=== PATIENT | female | born 1990 ===

== ENCOUNTER 2016-05-23 00:36 | Emergency (ER) | payer OTHER ==
[2016-05-23 00:54] VITALS: TEMP 98.7
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
[2016-05-23 01:09] LABS: BASO % 0.2 % (0.0-2.0); EOS % 0.3 % (0.0-4.0); HEMATOCRIT 39.7 % (34.0-47.0); LYMPH # 1.6 K/uL (1.0-4.3); LYMPH % 22.7 % (20.0-40.0); MEAN CELL VOLUME 85.9 fL (81.0-99.0); MEAN CORPUSCULAR HEMOGLOBIN 28.4 pg (27.0-31.0); MEAN PLATELET VOLUME 10.1 fL (7.2-11.7); MONO # 0.7 K/uL (0.0-0.8); MONO % 9.7 % (0.0-10.0); NRBC % 0.1 % (0.0-2.0); RBC URINE < 1 /hpf (0-3); RED CELL DISTRIBUTION WIDTH 14.1 % (11.5-14.5); URINE BILIRUBIN NEGATIVE (NEGATIVE); URINE BLOOD NEGATIVE (NEGATIVE); URINE COLOR Straw (YELLOW); URINE GLUCOSE (UA) NORMAL (Normal); URINE KETONE NEGATIVE (NEGATIVE); URINE LEUKOCYTE ESTERASE NEG Leu/uL (Negative); URINE PROTEIN NEGATIVE (NEGATIVE); URINE UROBILINOGEN NORMAL mg/dL (0.2-1.0); WBC URINE < 1 /hpf (0-5); WHITE BLOOD COUNT 6.9 K/uL (4.8-10.8)
[2016-05-23 01:14] LABS: CHLORIDE 109 mmol/L (98-107)
[2016-05-23 01:15] LABS: POTASSIUM 3.6 mmol/L (3.6-5.2); SODIUM 148 mmol/L (132-148)
[2016-05-23 01:17] LABS: ALB/GLOB RATIO 1.2 (1.0-2.1); ALKALINE PHOSPHATASE 62 U/L (38-126); AST/SGOT 17 U/L (14-36); BILIRUBIN,TOTAL 0.4 mg/dL (0.2-1.3); CARBON DIOXIDE 20 mmol/L (22-30); GFR AFRICAN-AMERICAN > 60
[2016-05-23 01:18] LABS: ALCOHOL SERUM 255 mg/dl (0-10); ALT/SGPT 21 U/L (9-52); BLOOD UREA NITROGEN 6 mg/dL (7-17); CALCIUM 8.4 mg/dl (8.6-10.4); GLUCOSE,RANDOM 109 mg/dL (65-105)
[2016-05-23 01:48] VITALS: BP 100/66; PULSE 97; RESP 14
[2016-05-23 01:54] VITALS: O2SAT 98
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
== END 2016-05-23 01:51 ==
LOC: C.ER 00:36
DX: Z04.1 Encounter for examination and observation following transport accident (principal); F10.120 Alcohol abuse with intoxication, uncomplicated; Y90.8 Blood alcohol level of 240 mg/100 ml or more
CPT/HCPCS: 70450; 80053; 81001; 84703; 85025; 99285; G0480